=== PATIENT | female | born 1995 | race American Indian/Alaskan Native ===

== ENCOUNTER 2018-01-19 00:53 | Emergency (ER) | payer MEDICAID ==
[2018-01-19 01:37] VITALS: BMI 38.7
[2018-01-19] MEDS ORDERED: Magnesium Sulfate 4 gm/100 ml 4 GM/100 ML BAG IVPB ONE (01:37)
[2018-01-19] MEDS ORDERED: AMPicillin 2 GM in Sodium Chloride 0.9% 100 ML IVPB STA (01:40)
[2018-01-19] MEDS ORDERED: Betamethasone Soluspan 30 mg/5mL Inj Susp IM STA (01:43)
--- NOTE | 2018-01-19 02:12 | OBHP ---
Datetime: 01/19/2018 01:51 IP Adm Impression: , intrauterine IP Admit Plan: Observation/Evaluation Admit Comment, IP Provider: 22yo edc 04/27 by lmp _ 8wk us presents w/ c/o pprom @ 21:00. Pt states she initially thought it was urine so she went home and showered. After continuing to leak she decided to go to hospital for evaluation. She denies ctxs, vag bleeding, decreased fm or coitus. She states due to spAB @ 15wks pt saw Dr Mercer and had cervical length measurments early on in . pobhx: sp ab @ 15wks treated with D_E pmhx: denies pshx: see obhx shx: denies etoh,tobacco or illicit drug use nkda medic:pnv I: 25.6wks PPROM P: Begin MgSO4 4g load Betameth 12mg stat @2am Begin Ampicillin 4g load @ 1:50 pt d/w dr hugo @ [facility] [place]. for transfer. Indic for transfer and medic administered d/w pt. Pelvic Type - PN: Adequate Extremities - PN: Normal Abdomen - PN: Normal Lungs - PN: Normal Heart - PN: Normal Neurologic - PN: Normal HEENT - PN: Normal General - PN: Normal Presentation-Admit: Vertex FHR - Baseline A Provider: 150-160 Amniotic Fluid Color, Provider: Clear Membranes, Provider: Ruptured Comments, ACOG Physical Exam: SSE: + clear fluid in vault, yellow tinged, nonodorous bedside us vtx Pool Provider: Positive Nitrazine Provider: Positive EGA AdmitDate IP: 26.0 Vital Signs Provider: Reviewed IP Chief Complaint: Suspected ruptured membranes FHR Category Provider Fetus A: Category I NICHD Decel Fetus A IP Provider: None Dilatation, Provider: 0 Effacement, Provider: 30 Station, Provider: -2 Genitourinary Exam: Normal
[2018-01-19 07:02] VITALS: BP 125/83; PULSE 102; RESP 20; TEMP 97.5
== END 2018-01-19 02:25 | disposition short-term general hospital (02) ==
LOC: C.EROB 00:53
DX: O42.912 Preterm premature rupture of membranes, unspecified as to length of time between rupture and onset of labor, second trimester (principal); Z3A.25 25 weeks gestation of pregnancy
CPT/HCPCS: 99283; J0290; J0702